=== PATIENT | female | born 2000 | race Caucasian/White ===

== ENCOUNTER 2020-01-24 03:54 | Inpatient (IN) ==
[2020-01-24] MEDS ORDERED: Penicillin G Potassium 5,000,000 UNIT in 0.9 % Sodium Chloride Mini Bag 100 ML IVPB ONE (03:57)
[2020-01-24] MEDS ORDERED: Azithromycin 500 MG in 0.9 % Sodium Chloride 250 ML IVPB ONE (03:57)
[2020-01-24] MEDS ORDERED: Ondansetron 4 MG/2 ML VIAL IVP PRN (03:57)
[2020-01-24] MEDS ORDERED: Metoclopramide 10 MG/2 ML VIAL IVP PRN (03:57)
[2020-01-24] MEDS ORDERED: Famotidine 20 MG/2 ML VIAL IVP PRN (03:57)
[2020-01-24] MEDS ORDERED: miSOPROStoL 25 MCG TABLET VG PRN (03:57)
[2020-01-24] MEDS ORDERED: *HR* FentaNYL (PF) 100 MCG/2 ML VIAL IVP PRN (03:57)
[2020-01-24] MEDS ORDERED: Lidocaine 1% 20 ML MDV INFILT PRN (03:57)
[2020-01-24] MEDS ORDERED: Naloxone 0.4 MG/ML INJ IVP PRN (03:57)
[2020-01-24] MEDS: Ringers Solution, Lactated 1,000 ML IVC SCH ×3 (04:28→16:57)
[2020-01-24 04:44] LABS: Basophils % 0.3 %; Eosinophils # 0.1 K/mcL (0.0-0.6); Hematocrit 38.3 % (35.3-44.9); Hemoglobin 12.8 g/dL (11.5-15.4); Immature Granulocytes % 0.6 % (0-4); Lymphocytes # 1.8 K/mcL (0.6-4.6); Lymphocytes % 28.9 %; Mean Corpuscular HGB Conc 33.4 g/dL (31.6-35.5); Mean Corpuscular Hemoglobin 29.4 pg (28.0-33.3); Mean Platelet Volume 11.5 fL (9.4-12.4); Monocytes # 0.5 K/mcL (0.0-1.3); Monocytes % 7.4 %; Neutrophils # 3.8 K/mcL (1.6-8.9); Platelet Count 162 K/mcL (140-400); Red Blood Count 4.35 M/mcL (3.82-4.97); Red Cell Distribution Width 14.5 % (11.5-14.5); Segmented Neutrophils % 61.8 %; White Blood Count 6.2 K/mcL (4.3-11.1)
[2020-01-24 04:51] LABS: Amphetamine Screen,Urine Negative ng/mL (Cutoff=1000); Barbiturate Screen,Urine Negative ng/mL (Cutoff=200); Benzodiazepines Screen,Urine Negative ng/mL (Cutoff=200); Cannabinoid Screen,Urine Negative ng/mL (Cutoff = 50); Cocaine Screen,Urine Negative ng/mL (Cutoff= 300); Opiate Screen,Urine Negative ng/mL (Cutoff=300); Phencyclidine Screen,Urine Negative ng/mL (Cutoff=25)
[2020-01-24] MEDS: Penicillin G Potassium 2,500,000 UNIT/105 ML UNIT IVPB SCH ×3 (08:33→17:02)
[2020-01-24] MEDS ORDERED: miSOPROStoL 25 MCG TABLET PO STA (08:55)
[2020-01-24] MEDS ORDERED: Ropivacaine/PF 0.2% 20 ML VIAL EP ONE (14:23)
[2020-01-24] MEDS ORDERED: *HR* FentaNYL (PF) 100 MCG/2 ML VIAL EP ONE (14:23)
[2020-01-24] MEDS ORDERED: EPHEDrine 50 MG/ML VIAL IVP PRN (14:23)
[2020-01-24] MEDS ORDERED: *HR* FentaNYL (PF) 100 MCG/2 ML VIAL ONE (14:29)
[2020-01-24] MEDS ORDERED: Ropivacaine/PF 0.2% 20 ML VIAL ONE (14:29)
[2020-01-24] MEDS ORDERED: Epidural Premix (fent/bupiv) 110 ML EP SCH (14:30)
[2020-01-24] MEDS ORDERED: Oxytocin 20 units/ LR 1000 mL 20 UNIT/1,000 ML BAG IVC SCH (19:30)
[2020-01-24] MEDS ORDERED: Lidocaine/EPI 1:200k 2% PF 20 ML VIAL ONE (19:58)
[2020-01-24] MEDS ORDERED: *HR* Propofol 200 MG/20 ML VIAL IVP ONE (20:06)
[2020-01-24] MEDS ORDERED: Ketamine *HR* 500 MG/10 ML MDV ONE (20:07)
[2020-01-24] MEDS ORDERED: *HR* Oxytocin 10 UNIT/ML VIAL IM ONE (20:08)
[2020-01-24] MEDS ORDERED: *HR* Morphine Sulfate/PF 10 MG/10 ML AMPUL ONE (20:16)
[2020-01-24] MEDS ORDERED: Ondansetron 4 MG/2 ML VIAL ONE (20:23)
[2020-01-24] MEDS ORDERED: Acetaminophen IV 1,000 MG/100 ML INFUS..BTL ONE (20:58)
[2020-01-24] MEDS ORDERED: *HR* Promethazine 25 MG/ML VIAL IVP PRN (21:13)
[2020-01-24] MEDS ORDERED: *HR* HYDROmorphone PF 0.5 MG/0.5 ML SYRINGE IVP PRN (21:13)
[2020-01-24] MEDS ORDERED: *HR* OxyCODONE Immed Rel 5 MG TABLET PO PRN (21:13)
[2020-01-24] MEDS ORDERED: Ondansetron 4 MG/2 ML VIAL IVP ONE (21:13)
[2020-01-25] MEDS ORDERED: Ondansetron 4 MG/2 ML VIAL IVP PRN (00:05)
[2020-01-25] MEDS ORDERED: Metoclopramide 10 MG/2 ML VIAL IVP PRN (00:05)
[2020-01-25] MEDS ORDERED: Oxytocin 20 units/ LR 1000 mL 20 UNIT/1,000 ML BAG IVC SCH (00:05)
[2020-01-25] MEDS ORDERED: Sennosides 8.6 MG TABLET PO PRN (00:05)
[2020-01-25] MEDS: Ibuprofen 600 MG TABLET PO PRN ×2 (00:27→08:00)
[2020-01-25] MEDS: Simethicone 80 MG TAB.CHEW PO PRN ×2 (00:27→17:32)
[2020-01-25] MEDS: *HR* OxyCODONE/APAP 5/325 TABLET PO PRN ×3 (04:47→19:36)
[2020-01-25] MEDS: cephALEXin 500 MG CAPSULE PO SCH ×4 (05:28→19:36)
[2020-01-25] MEDS: metroNIDAZOLE 500 MG TABLET PO SCH ×4 (05:29→19:36)
[2020-01-25 06:41] LABS: Basophils % 0.3 %; Eosinophils % 0.1 %; Hematocrit 31.1 % (35.3-44.9); Hemoglobin 10.1 g/dL (11.5-15.4); Immature Granulocytes % 0.5 % (0-4); Immature Platelets 10.1 % (1.1-6.1); Lymphocytes # 1.2 K/mcL (0.6-4.6); Lymphocytes % 13.4 %; Mean Corpuscular HGB Conc 32.5 g/dL (31.6-35.5); Mean Corpuscular Hemoglobin 28.4 pg (28.0-33.3); Mean Corpuscular Volume 87.4 fL (83.0-100.0); Mean Platelet Volume 11.4 fL (9.4-12.4); Monocytes # 0.6 K/mcL (0.0-1.3); Monocytes % 7.2 %; Neutrophils # 6.9 K/mcL (1.6-8.9); Platelet Count 138 K/mcL (140-400); Red Blood Count 3.56 M/mcL (3.82-4.97); Red Cell Distribution Width 14.6 % (11.5-14.5); Segmented Neutrophils % 78.5 %; White Blood Count 8.8 K/mcL (4.3-11.1)
[2020-01-25] MEDS: Prenatal Vit/FA 1 EACH TABLET PO SCH (07:55)
[2020-01-26] MEDS: *HR* OxyCODONE/APAP 5/325 TABLET PO PRN ×3 (01:58→12:28)
[2020-01-26] MEDS: Simethicone 80 MG TAB.CHEW PO PRN (07:21)
[2020-01-26] MEDS: metroNIDAZOLE 500 MG TABLET PO SCH ×2 (09:44→14:52)
[2020-01-26] MEDS: cephALEXin 500 MG CAPSULE PO SCH ×2 (09:44→14:52)
[2020-01-26] MEDS: Prenatal Vit/FA 1 EACH TABLET PO SCH (09:44)
[2020-01-26 09:54] VITALS: BP 115/76
[2020-01-26] MEDS: Ibuprofen 600 MG TABLET PO PRN (14:48)
== END 2020-01-26 15:03 | disposition home or self-care (01) | DRG 540 ==
LOC: 1NENULAB 03:54 → 1NENUOBS 01-25 00:02
PROVIDERS: ADMIT Student in an Organized Health Care Education/Training Program; ATTEND Student in an Organized Health Care Education/Training Program

== ENCOUNTER 2022-02-08 16:20 | Observation (INO) ==
[2022-02-08] MEDS ORDERED: Ringers Solution, Lactated 1,000 ML IVC ONE ×3 (17:21→20:59)
[2022-02-08 17:42] LABS: Basophils % 0.2 %; Eosinophils % 0.1 %; Hematocrit 39.3 % (35.3-44.9); Hemoglobin 13.1 g/dL (11.5-15.4); Immature Granulocytes % 0.5 % (0-4); Lymphocytes # 0.9 K/mcL (0.6-4.6); Lymphocytes % 5.9 %; Mean Corpuscular HGB Conc 33.3 g/dL (31.6-35.5); Mean Corpuscular Hemoglobin 28.2 pg (28.0-33.3); Mean Corpuscular Volume 84.5 fL (83.0-100.0); Mean Platelet Volume 10.5 fL (9.4-12.4); Monocytes # 0.7 K/mcL (0.0-1.3); Platelet Count 296 K/mcL (140-400); Red Blood Count 4.65 M/mcL (3.82-4.97); Red Cell Distribution Width 12.6 % (11.5-14.5); Segmented Neutrophils % 88.3 %; White Blood Count 14.7 K/mcL (4.3-11.1)
[2022-02-08 18:40] LABS: Alanine Aminotransferase 16 Units/L (7-52); Albumin 4.8 g/dL (3.5-5.7); Albumin/Globulin Ratio 1.5 (1.1-2.2); Alkaline Phosphatase 60 Units/L (34-104); Aspartate Amino Transferase 20 Units/L (13-39); BUN/Creatinine Ratio 15 (6-26); Bilirubin,Direct 0.1 mg/dL (0.0-0.2); Bilirubin,Indirect 0.4 mg/dL (0.0-1.0); Bilirubin,Total 0.5 mg/dL (0.3-1.0); Blood Urea Nitrogen 12 mg/dL (6-20); Calcium 9.6 mg/dL (8.6-10.3); Carbon Dioxide 23 mEq/L (23-29); Chloride 99 mEq/L (98-107); Globulin 3.1 g/dL (2.4-3.5); Glucose 84 mg/dL (70-105); Osmolality,Calculated 275 (280-300); Potassium 3.6 mEq/L (3.5-5.1); Sodium 133 mEq/L (136-145); Total Protein 7.9 g/dL (6.4-8.9); Troponin I < 0.03 ng/mL (< 0.04); eGFR For African Americans > 60 (> 60); eGFR For Non-African Americans > 60 (> 60)
[2022-02-08 18:43] LABS: INR 1.1; Prothrombin Time 12.6 Seconds (9.4-12.1)
[2022-02-08 18:45] LABS: Activated Partial Thrombo Time 34.4 Seconds (26.0-36.0)
[2022-02-08 19:35] LABS: Bacteria,Urine Few per hpf (None-Few); Bilirubin,Urine Negative (Negative); Blood,Urine Negative (Negative); Clarity,Urine Clear (Clear); Color,Urine Colorless (Yellow); Glucose,Urine (UA) Normal (Normal); Ketones,Urine Negative (Negative); Leukocyte Esterase,Urine Negative (Negative); Nitrite,Urine Negative (Negative); Protein,Urine Negative (Neg-Trace); RBC,Urine 0-3 per hpf (0-3); Specific Gravity,Urine 1.005 (1.010-1.025); Squamous Epithelial Cell,Urine Few per hpf (None-Few); Urobilinogen,Urine Normal (Normal); WBC,Urine 0-3 per hpf (0-3)
[2022-02-08 21:00] LABS: Influenza A PCR Negative (Negative); Influenza B PCR Negative (Negative); Resp. Syncytial Virus PCR Negative (Negative)
[2022-02-08 21:02] LABS: SARS-CoV-2 by PCR (In House) Negative (Negative)
[2022-02-08] MEDS ORDERED: Iopamidol - 370 500 ML MLS IVP ONE (21:41)
[2022-02-08] MEDS ORDERED: Morphine Sulfate 2 MG/ML SYRINGE IVP ONE (22:57)
[2022-02-08] MEDS ORDERED: Gabapentin 300 MG CAPSULE PO ONE (23:21)
[2022-02-08 23:59] LABS: Candida DNA Not Detected (Not Detect); Gardnerella DNA Not Detected (Not Detect); Trichomonas DNA Not Detected (Not Detect)
[2022-02-09] MEDS ORDERED: cefTRIAXone 1,000 MG in 0.9 % Sodium Chloride 10 ML IVP ONE (00:24)
[2022-02-09] MEDS ORDERED: Piperacillin/Tazobactam 3.375 GM in 0.9 % Sodium Chloride Mini Bag 100 ML IVPB ONE (00:33)
[2022-02-09] MEDS ORDERED: miSOPROStoL 100 MCG TABLET PO STA (04:21)
[2022-02-09] MEDS ORDERED: Ringers Solution, Lactated 1,000 ML IVC SCH (05:00)
[2022-02-09] MEDS ORDERED: Ketorolac 30 MG/ML VIAL IVP ONE (05:21)
[2022-02-09] MEDS ORDERED: *HR* Midazolam HCl 2 MG/2 ML VIAL ONE (07:24)
[2022-02-09] MEDS ORDERED: *HR* FentaNYL (PF) 100 MCG/2 ML VIAL ONE (07:24)
[2022-02-09] MEDS ORDERED: *HR* Propofol 200 MG/20 ML VIAL IVP ONE (07:25)
[2022-02-09] MEDS ORDERED: Ondansetron 4 MG/2 ML VIAL ONE (07:25)
[2022-02-09] MEDS ORDERED: *HR* Succinylcholine 200 MG/10 ML VIAL IVP ONE (07:25)
[2022-02-09] MEDS ORDERED: Lidocaine -MPF 2% 5 ML VIAL ONE (07:25)
[2022-02-09] MEDS ORDERED: Lidocaine HCL 4 ML Topical Solution (Laryng-O-Jet Kit Sterile Pak) TP ONE (07:25)
[2022-02-09] MEDS ORDERED: Methylergonovine 0.2 MG/ML AMPUL IM ONE ×2 (07:32→11:02)
[2022-02-09] MEDS ORDERED: *HR* HYDROmorphone (PF) 1 MG/ML SYRINGE IVP PRN (08:43)
[2022-02-09] MEDS ORDERED: *HR* HYDROmorphone 2 MG TABLET PO PRN (08:43)
[2022-02-09] MEDS ORDERED: *HR* Labetalol 20 MG/4 ML SYRINGE IVP PRN (08:43)
[2022-02-09] MEDS ORDERED: Famotidine 20 MG/2 ML VIAL IVP ONE (08:43)
[2022-02-09] MEDS ORDERED: Promethazine 6.25 MG in Water for inj. (sterile) 20 ML IVPB PRN (08:43)
[2022-02-09] MEDS ORDERED: Acetaminophen IV 1,000 MG/100 ML BAG IVPB ONE (08:43)
[2022-02-09] MEDS ORDERED: *HR* OxyCODONE Immed Rel 5 MG TABLET PO PRN (08:43)
[2022-02-09] MEDS ORDERED: Scopolamine Patch 1.5 MG PATCH.TD72 ONE (08:44)
[2022-02-09] MEDS ORDERED: Scopolamine Patch 1.5 MG PATCH.TD72 TD SCH (08:45)
[2022-02-09] MEDS ORDERED: *HR* HYDROMORPHONE 2 MG/ML VIAL ONE (10:05)
[2022-02-09] MEDS ORDERED: *HR* Belladonna Alkaloids/Opium 30 MG RECTAL SUPPOSITORY RC ONE (10:06)
[2022-02-09] MEDS ORDERED: Silver Nitrate Applicator 1 STICK..EA. TP ONE (10:07)
[2022-02-09] MEDS ORDERED: *HR* OxyCODONE/APAP 5/325 TABLET PO ONE (10:30)
[2022-02-09] MEDS: Piperacillin/Tazobactam 3.375 GM in 0.9 % Sodium Chloride Mini Bag 100 ML IVPB SCH ×2 (15:21→23:09)
[2022-02-09] MEDS: Ibuprofen 600 MG TABLET PO SCH (20:13)
[2022-02-10] MEDS: Ibuprofen 600 MG TABLET PO SCH (06:12)
[2022-02-10] MEDS: Piperacillin/Tazobactam 3.375 GM in 0.9 % Sodium Chloride Mini Bag 100 ML IVPB SCH (06:13)
[2022-02-10 06:39] VITALS: BP 84/48; PULSE 64; TEMP 98.3; O2SAT 99
[2022-02-10 09:50] LABS: Basophils % 0.2 %; Eosinophils % 0.2 %; Hemoglobin 10.7 g/dL (11.5-15.4); Immature Granulocytes % 0.5 % (0-4); Lymphocytes # 1.7 K/mcL (0.6-4.6); Lymphocytes % 13.2 %; Mean Corpuscular HGB Conc 32.4 g/dL (31.6-35.5); Mean Corpuscular Hemoglobin 28.3 pg (28.0-33.3); Mean Corpuscular Volume 87.3 fL (83.0-100.0); Mean Platelet Volume 10.4 fL (9.4-12.4); Monocytes # 0.8 K/mcL (0.0-1.3); Monocytes % 6.3 %; Neutrophils # 9.9 K/mcL (1.6-8.9); Platelet Count 266 K/mcL (140-400); Red Blood Count 3.78 M/mcL (3.82-4.97); Red Cell Distribution Width 13.2 % (11.5-14.5); Segmented Neutrophils % 79.6 %; White Blood Count 12.5 K/mcL (4.3-11.1)
[2022-02-10] MEDS ORDERED: Ibuprofen 600 MG TABLET PO SCH (19:30)
== END 2022-02-10 11:03 | disposition home or self-care (01) ==
LOC: EMEROOARM 16:20 → 1NENUPED 16:20
PROVIDERS: ADMIT Obstetrics & Gynecology; ATTEND Obstetrics & Gynecology